=== PATIENT | female | born 1990 | race Asian ===

== ENCOUNTER 2025-06-22 00:03 | Emergency (ER) | payer OTHER ==
[~2025-06-22] VITALS: Ht 162.6 cm; Wt 63.6 kg
[2025-06-22 00:16] VITALS: BP 122/58; PULSE 70; RESP 16; TEMP 98.4; O2SAT 100
[2025-06-22 00:27] LABS: COVID AG,FIA SOURCE NASAL SWAB
[2025-06-22 00:53] LABS: SARS-COV2 (COVID) ANTIGEN,FIA Negative (Negative)
== END 2025-06-22 02:06 | disposition home or self-care (01) ==
LOC: EMS 00:11
DX: R05.9 Cough, unspecified (principal); Z20.822 Contact with and (suspected) exposure to COVID-19
CPT/HCPCS: 99283